=== PATIENT | male | born 1950 | race Caucasian/White ===

== ENCOUNTER → 2019-08-18 09:38 | Outpatient (CLI) | payer MEDICARE, OTHER, SELFPAY ==
[2019-08-18 10:41] LABS: BUN Creatinine Ratio 21.1 (6-22); Blood Urea Nitrogen 19 mg/dL (9-20); Calcium 9.3 mg/dL (8.4-10.2); Carbon Dioxide 29 mmol/L (22-32); Chloride 101 mmol/L (98-107); Estimated Glomerular Filt Rate > 60.0 mL/min (>60); Glucose 166 mg/dL (80-110); HEMOLYSIS < 15 (0-50); Potassium 4.4 mmol/L (3.4-5.1); Sodium 139 mmol/L (137-145)
== END ==
PROVIDERS: Family Provider Internal Medicine; PCP Internal Medicine; Visit Provider Internal Medicine
DX: I10 Essential (primary) hypertension (principal)
CPT/HCPCS: 36415; 80048

== ENCOUNTER 2019-11-12 09:46 | Day surgery (SDC) | payer MEDICARE, OTHER, SELFPAY ==
--- NOTE | 2019-11-12 08:15 | PM.HP.1 ---
History of Present Illness History of Present Illness Date Patient Seen: 11/12/19 Chief complaint: [id number] Narrative: Patient is a 69 year old male with a history of colon polyps presented for colonoscopy. Known history of colon polyps. Last colonoscopy 2013. Meds Home Medications and Allergies Home Medications Medication Instructions Recorded Confirmed Type Aspir-81 81 mg DAILY 11/12/19 11/12/19 History CoQ-10 300 mg DAILY 11/12/19 11/12/19 History Glucosamine 1,500 mg DAILY 11/12/19 11/12/19 History Vitamin D3 DAILY 11/12/19 History atorvastatin 10 mg DAILY 11/12/19 11/12/19 History glipizide 10 mg DAILY 11/12/19 11/12/19 History lisinopril 20 mg DAILY 11/12/19 11/12/19 History metformin 2,000 mg DAILY 11/12/19 11/12/19 History multivitamin DAILY 11/12/19 History saw palmetto 320 mg DAILY 11/12/19 11/12/19 History Allergies Allergy/AdvReac Type Severity Reaction Status Date / Time ibuprofen AdvReac ITCHING Verified 11/12/19 10:11 Review of Systems Review of Systems ROS: Yes All systems reviewed with the patient and are negative except as otherwise documented Exam Const General: cooperative, healthy appearing, comfortable, well developed and well groomed HENAL Head: normocephalic and atraumatic Nose: external nose normal Resp Effort & Inspection: normal respiratory effort and able to speak in complete sentences Auscultation: clear to auscultation bilaterally Cardio Rate: regular rate Rhythm: regular rhythm Heart Sounds: S1 normal and S2 normal GI Palpation: soft, No guarding and No rigid Auscultation: normal bowel sounds Extrem Right lower extremity: no edema Left lower extremity: no edema Assessment & Plan Assessment & Plan narrative: 1. Personal history of colon polyps - Colonoscopy today, further recommendations to follow
[2019-11-12 09:58] VITALS: BP 144/77; PULSE 73; RESP 20; TEMP 36.4; O2SAT 100; BMI 27.8
[2019-11-12] MEDS: SODIUM CHLORIDE 0.9% 1,000 ML 70 ML IV (10:20)
[2019-11-12] MEDS: fentaNYL 250 MCG/5 ML INJ IV (10:36)
[2019-11-12] MEDS: MIDAZOLAM 5 MG/5 ML VIAL IV (10:38)
[2019-11-12 10:57] VITALS: BP 121/80; PULSE 71; RESP 16; TEMP 36.5; O2SAT 95
--- NOTE | 2019-11-12 11:00 | PM.OP.ENDO ---
Operative Date/Time/Diagnoses Date of procedure: 11/12/19 Time of procedure: 10:35 Procedure Notes Procedure in detail: Surgeon: Archana Rivera DO Procedure: Colonoscopy Preoperative diagnosis: 1. Personal history of colon polyps, last colonoscopy 2013 Postoperative diagnosis: 1. Internal hemorrhoids, otherwise unremarkable colonoscopy to cecum Medications: Conscious sedation using 5 mg IV of Midazolam and 100 mcg IV of Fentanyl Preanesthesia Assessment An H and P was performed/updated and the Px?s ASA class is 2. The procedure was discussed in detail with the patient. The potential risks and complications including infection, bleeding, missed lesions, perforation, need for surgery in case of perforation, prolonged hospital stay, and were explained. A brief question and answer period was allotted and once all questions were answered, informed consent was obtained. The patient was brought back to the procedure room and placed on standard monitoring. The patient?s vital signs were monitored continuously throughout the entire procedure. Prior to starting, a timeout was performed to confirm the patient?s identity, allergies, medications, and procedure. Procedure in detail The patient was placed in left lateral decubitus position and once adequate sedation was obtained a EVELYN was performed. The digital rectal examination did not reveal any palpable lesions. The tip of the colonoscope was placed in the anal canal and advanced without difficulty all the way to the cecum which was identified by the appendiceal orifice and the ileocecal valve. Careful examination of all greene of the colon was performed with irrigation of any residual stool. The patient tolerated the procedure well and will be brought back to the recovery area to be discharged once criteria are met. The prep was judged to be good/excellent and adequate to identify polyps less than 5 mm. The withdrawal time was 9min. The total physician intraservice time was 17 min. Complications There were no complications and estimated blood loss was minimal. Recommendations: Resume previous diet Continue outPx medications Follow up pathology results Repeat colonoscopy in 5 years for surveillance An emergency contact number was given to the patient for any complications related to the procedure Scope withdrawal time: 9min Sedation minutes: 17
[2019-11-12 11:02] VITALS: BP 133/88; PULSE 70; RESP 16; O2SAT 96
[2019-11-12 11:04] VITALS: BP 133/91; PULSE 69; RESP 19; TEMP 36.3; O2SAT 96
[2019-11-12 11:27] VITALS: BP 111/72; PULSE 62; RESP 18; TEMP 36.7; O2SAT 98
== END 2019-11-12 11:36 | disposition home or self-care (01) ==
PROVIDERS: Family Provider Internal Medicine; PCP Internal Medicine; Referring Provider Student in an Organized Health Care Education/Training Program; Visit Provider Student in an Organized Health Care Education/Training Program
PROC: 0DJD8ZZ Inspection of Lower Intestinal Tract, Via Natural or Artificial Opening Endoscopic (ICD-10-PCS; CPT 45378; principal; 2019-11-12 11:00)
DX: Z12.11 Encounter for screening for malignant neoplasm of colon (principal); Z86.010 Personal history of colon polyps; K64.8 Other hemorrhoids
CPT/HCPCS: G0105; J2250; J3010

== ENCOUNTER → 2019-12-05 08:55 | Outpatient (CLI) | payer MEDICARE, OTHER, SELFPAY ==
[2019-12-05 11:23] LABS: White Blood Cell Count 6.4 X10^3/uL (4.5-11.0)
[2019-12-05 11:41] LABS: Alanine Aminotransferase 32 IU/L (<50); Albumin 4.7 g/dL (3.5-5.0); Albumin Globulin Ratio 1.5 (1.0-2.8); Alkaline Phosphatase 46 U/L (38-126); Aspartate Aminotransferase 29 IU/L (17-59); Bilirubin Direct 0.1 mg/dL (0.0-0.4); Bilirubin Total 0.7 mg/dL (0.2-1.3); Blood Urea Nitrogen 16 mg/dL (9-20); Calcium 9.5 mg/dL (8.4-10.2); Carbon Dioxide 27 mmol/L (22-32); Chloride 98 mmol/L (98-107); Estimated Glomerular Filt Rate > 60.0 mL/min (>60); Globulin 3.1 g/dL (1.7-4.1); Glucose 224 mg/dL (80-110); HEMOLYSIS 45 (0-50); Potassium 4.5 mmol/L (3.4-5.1); Sodium 136 mmol/L (137-145); Total Protein 7.8 g/dL (6.3-8.2)
== END ==
PROVIDERS: Family Provider Internal Medicine; PCP Internal Medicine; Referring Provider Podiatrist; Visit Provider Podiatrist
DX: B35.1 Tinea unguium (principal)
CPT/HCPCS: 36415; 80053; 82248; 85048

== ENCOUNTER → 2020-06-16 19:31 | Outpatient (ROUT) | payer MEDICARE, OTHER, SELFPAY ==
[2020-06-16 19:44] LABS: BUN Creatinine Ratio 20.6 (6-22); Blood Urea Nitrogen 21 mg/dL (9-20); Calcium 9.9 mg/dL (8.4-10.2); Carbon Dioxide 27 mmol/L (22-32); Chloride 101 mmol/L (98-107); Estimated Glomerular Filt Rate > 60.0 mL/min (>60); Glucose 146 mg/dL (80-110); HEMOLYSIS < 15 (0-50); Potassium 4.5 mmol/L (3.4-5.1); Sodium 139 mmol/L (137-145)
== END ==
PROVIDERS: Family Provider Internal Medicine; PCP Internal Medicine; Visit Provider Internal Medicine
DX: I10 Essential (primary) hypertension (principal)
CPT/HCPCS: 80048

== ENCOUNTER → 2021-08-23 10:21 | Outpatient (CLI) | payer MEDICARE, OTHER, SELFPAY ==
[2021-08-23 11:13] LABS: COVID19 -Nasal RAPID Negative (Negative)
== END ==
PROVIDERS: Family Provider Internal Medicine; PCP Internal Medicine; Referring Provider Physician Assistant; Visit Provider Physician Assistant
DX: Z20.822 Contact with and (suspected) exposure to COVID-19 (principal)
CPT/HCPCS: 87635

== ENCOUNTER → 2022-05-01 07:48 | Outpatient (CLI) | payer MEDICARE, OTHER, SELFPAY ==
[2022-05-01 08:31] LABS: Hematocrit 43.4 % (41-53); Mean Corpuscular HGB Conc 34.6 % (30-36); Mean Corpuscular Hemoglobin 30.6 PG (26-34); Mean Corpuscular Volume 88.4 fL (80-100); Platelet Count 172 X10^3/uL (150-400); Red Blood Cell Count 4.91 X10^6/uL (4.5-5.9); Red Cell Distribution Width 13.1 % (11.6-14.8)
[2022-05-01 08:41] LABS: Alanine Aminotransferase 20 IU/L (<50); Albumin 4.4 g/dL (3.5-5.0); Albumin Globulin Ratio 1.6 (1.0-2.8); Alkaline Phosphatase 47 U/L (38-126); Aspartate Aminotransferase 20 IU/L (17-59); BUN Creatinine Ratio 22.1 (6-22); Blood Urea Nitrogen 19 mg/dL (9-20); Calcium 9.2 mg/dL (8.4-10.2); Carbon Dioxide 28 mmol/L (22-32); Chloride 100 mmol/L (98-107); Cholesterol 138 mg/dL (140-199); Estimated Glomerular Filt Rate > 60 mL/min (>60); Globulin 2.7 g/dL (1.7-4.1); Glucose 159 mg/dL (80-110); HDL Cholesterol 33 mg/dL (40-60); HEMOLYSIS < 15 (0-50); LDL Cholesterol Calculated 76 mg/dL (<100); Potassium 4.7 mmol/L (3.4-5.1); Sodium 136 mmol/L (137-145); Total Protein 7.1 g/dL (6.3-8.2); Triglycerides 143 mg/dL (35-150)
[2022-05-01 09:11] LABS: Prostate Specific Antigen 1.81 ng/mL (0.10-4.00)
[2022-05-01 09:12] LABS: TSH w/ Reflex to FT4 2.38 uIU/mL (0.47-4.68)
[2022-05-01 09:35] LABS: Hemoglobin A1C% w Est Avg Glu 7.4 % (4.0-6.0)
[2022-05-01 10:08] LABS: Creatinine Urine Random 102.8 mg/dL
[2022-05-01 10:12] LABS: Microalbumi Creatinin Ratio Ur 11.6 ug/mg CR (<30); Microalbumin Urine Random 1.2 mg/dL (0-1.6)
== END ==
PROVIDERS: Family Provider Internal Medicine; PCP Internal Medicine; Referring Provider Internal Medicine; Visit Provider Internal Medicine
DX: E11.69 Type 2 diabetes mellitus with other specified complication (principal); E78.5 Hyperlipidemia, unspecified; N40.1 Benign prostatic hyperplasia with lower urinary tract symptoms; E78.2 Mixed hyperlipidemia; I10 Essential (primary) hypertension; N13.8 Other obstructive and reflux uropathy
CPT/HCPCS: 36415; 80053; 80061; 82043; 82570; 83036; 84153; 84443; 85027

== ENCOUNTER → 2022-11-29 07:55 | Outpatient (CLI) | payer MEDICARE, OTHER, SELFPAY ==
[2022-11-29 09:28] LABS: Hemoglobin A1C% w Est Avg Glu 8.4 % (4.0-6.0)
[2022-11-29 09:37] LABS: BUN Creatinine Ratio 21.3 (6-22); Blood Urea Nitrogen 17 mg/dL (9-20); Calcium 8.5 mg/dL (8.4-10.2); Carbon Dioxide 28 mmol/L (22-32); Chloride 98 mmol/L (98-107); Estimated Glomerular Filt Rate > 60 mL/min (>60); Glucose 155 mg/dL (80-110); HEMOLYSIS < 15 (0-50); Potassium 4.6 mmol/L (3.4-5.1); Sodium 137 mmol/L (137-145)
== END ==
PROVIDERS: PCP Internal Medicine; Referring Provider Internal Medicine; Visit Provider Internal Medicine
DX: E11.69 Type 2 diabetes mellitus with other specified complication (principal); E78.5 Hyperlipidemia, unspecified; I10 Essential (primary) hypertension
CPT/HCPCS: 36415; 80048; 83036

== ENCOUNTER → 2023-05-03 07:08 | Outpatient (CLI) | payer MEDICARE, OTHER, SELFPAY ==
[2023-05-03 07:52] LABS: HEMOLYSIS < 15 (0-50)
[2023-05-03 08:01] LABS: Aspartate Aminotransferase 20 IU/L (17-59); BUN Creatinine Ratio 17.6 (6-22); Blood Urea Nitrogen 16 mg/dL (9-20); Calcium 8.8 mg/dL (8.4-10.2); Carbon Dioxide 28 mmol/L (22-32); Chloride 100 mmol/L (98-107); Cholesterol 131 mg/dL (140-199); Estimated Glomerular Filt Rate > 60 mL/min (>60); Glucose 178 mg/dL (80-110); HDL Cholesterol 36 mg/dL (40-60); LDL Cholesterol Calculated 71 mg/dL (<100); Potassium 4.6 mmol/L (3.4-5.1); Sodium 134 mmol/L (137-145); Triglycerides 121 mg/dL (35-150)
[2023-05-03 08:52] LABS: Prostate Specific Antigen 1.91 ng/mL (0.10-4.00)
[2023-05-03 09:45] LABS: Appearance Urine UA CLEAR; Bilirubin Urine UA NEGATIVE (NEGATIVE); Color Urine UA YELLOW; Glucose Urine UA 3+ g/dL (Negative); Ketones Urine UA NEGATIVE (NEGATIVE); Leukocyte Esterase Urine UA NEGATIVE (NEGATIVE); Nitrite Urine UA NEGATIVE (Negative); Occult Blood Urine UA NEGATIVE (Negative); Protein Urine UA NEGATIVE (Negative); Specific Gravity Urine UA 1.015 (1.000-1.035); Urobilinogen Urine UA 0.2 E.U./dL (0.2); pH Urine UA 5.5 (4.5-8.0)
[2023-05-03 09:58] LABS: Bacteria Urine None Seen; RBC Urine None Seen (0-5/HPF); Squamous Epithelial Cell Urine 0-1 /HPF (0-5/HPF); WBC Urine None Seen (0-5/HPF)
[2023-05-03 10:14] LABS: Creatinine Urine Random 75.5 mg/dL
[2023-05-03 10:22] LABS: Microalbumin Urine Random < 0.6 mg/dL (0-1.6)
[2023-05-04 07:09] LABS: x Labcorp Estim. Avg Glu (eAG) 154 mg/dL (.)
== END ==
PROVIDERS: PCP Internal Medicine; Referring Provider Internal Medicine; Visit Provider Internal Medicine
DX: N40.1 Benign prostatic hyperplasia with lower urinary tract symptoms; E11.69 Type 2 diabetes mellitus with other specified complication; E78.2 Mixed hyperlipidemia; E78.5 Hyperlipidemia, unspecified; I10 Essential (primary) hypertension; N13.8 Other obstructive and reflux uropathy
CPT/HCPCS: 36415; 80048; 80061; 81001; 82043; 82570; 83036; 84153; 84450

== ENCOUNTER → 2023-11-01 08:24 | Outpatient (CLI) | payer MEDICARE, SELFPAY ==
--- NOTE | 2023-11-01 08:26 | DI.RAD.S_ITS ---
PROCEDURE: XR LUMBAR SPINE 2-3V INDICATIONS: back pain, no trauma TECHNIQUE: 3 views of the lumbar spine were acquired. COMPARISON: None. FINDINGS: Bones: 5 [id number] vertebrae are present. Straightening of the normal lumbar lordosis. There is multilevel facet arthropathy, worse at L4-5 and L5-S1. Mild multilevel disc height loss with degenerative endplate changes and spurring is present. No vertebral body compression fractures. No suspicious bony lesions. Soft tissues: Overlying bowel gas pattern is normal. No suspicious soft tissue calcifications. Atherosclerotic vascular calcifications. IMPRESSION: Mild degenerative changes of the lumbar spine. Dictated by: Gaurang Young M.D. on 11/01/2023 at 10:26 Approved by: Gaurang Young M.D. on 11/01/2023 at 10:27
[2023-11-01 10:37] LABS: BUN Creatinine Ratio 18.8 (6-22); Blood Urea Nitrogen 16 mg/dL (9-20); Calcium 9.6 mg/dL (8.4-10.2); Carbon Dioxide 28 mmol/L (22-32); Chloride 97 mmol/L (98-107); Estimated Glomerular Filt Rate > 60 mL/min (>60); Glucose 116 mg/dL (80-110); HEMOLYSIS < 15 (0-50); Potassium 4.1 mmol/L (3.4-5.1); Sodium 136 mmol/L (137-145)
[2023-11-01 11:54] LABS: Hemoglobin A1C% w Est Avg Glu 7.7 % (4.0-6.0)
== END ==
PROVIDERS: PCP Internal Medicine; Referring Provider Internal Medicine; Visit Provider Internal Medicine
DX: M47.817 Spondylosis without myelopathy or radiculopathy, lumbosacral region (principal); M54.31 Sciatica, right side; E11.69 Type 2 diabetes mellitus with other specified complication; M47.816 Spondylosis without myelopathy or radiculopathy, lumbar region; M54.50 Low back pain, unspecified; G89.29 Other chronic pain; E78.5 Hyperlipidemia, unspecified
CPT/HCPCS: 36415; 72100; 80048; 83036

== ENCOUNTER 2023-12-31 14:30 | Outpatient (RCR) | payer MEDICARE, SELFPAY ==
--- NOTE | 2023-12-26 17:07 | PT.OTN ---
Current Diagnoses Other chronic pain (12/26/23) Sciatica, right side (12/26/23) Low back pain, unspecified (12/26/23) Physical Therapy Treatment Note PT-OP-A Visit Information Start: 12/26/23 16:44 Freq: Status: Active Protocol: Document 12/26/23 14:30 DCW (Rec: 12/26/23 17:07 DCW [id number]) Out-Patient Physical Therapy Visit Information Visit Information Visit Type Initial Evaluation Visit Start Time 14:30 Visit Stop Time 15:10 Visit Number 1 Number of 3D ARTIST Visits 0 Evaluation Information Evaluation Date 12/26/23 PT-OP-B Current Condition Start: 12/26/23 16:44 Freq: Status: Active Protocol: Document 12/26/23 14:30 DCW (Rec: 12/26/23 17:07 DCW [id number]) Current Condition History of Current Condition Onset Date July, Current Complaints Right posterior hip pain History of Current Condition Pt is a 73 year old male presenting with a five month history of right posterior hip pain. Pt reports that in July of last year, he and his purchased a double- wide to fix up for family to stay in, and he spent a galvan of time seated on the floor or bent over fixing electric outlets and light switches. By the time he was done, he had fairly severe pain in his right posterior hip, as well as radiating pain in his right leg. Pt reports pain is worse in the evening, or after sitting/standing for too long. Pain decreases with activity, or when lying flat on a firm surface. Pt does admit that his pain has significantly declined over the last two months, and is largely feeling much better, no longer leg pain, more just a general stiffness in his hip. PT-OP-C Subjective Start: 12/26/23 16:44 Freq: Status: Active Protocol: Document 12/26/23 14:30 DCW (Rec: 12/26/23 17:07 DCW [id number]) OP-PT Subjective Patient Comments Patient Comments I think I'm already on my way healing from this. Patient Questionnaires Oswestry Low Back Index Oswestry Score 2/50 = 4% Oswestry Impairment 1 to 19% Impaired (Score 1-19) PT-OP-F Manual Assessment Start: 12/26/23 16:44 Freq: Status: Active Protocol: Document 12/26/23 14:30 DCW (Rec: 12/26/23 17:07 DCW [id number]) Manual Assessments Soft Tissue Assessment Soft Tissue Mobility Assessment Moderate tone with tenderness to palpation 11/04: Pain with wincing at R piriformis PT-OP-L Special Tests Start: 12/26/23 16:44 Freq: Status: Active Protocol: Document 12/26/23 14:30 DCW (Rec: 12/26/23 17:07 DCW [id number]) Special Tests Lumbar Spine Special Tests Vertical Spine Loading Test Results Negative Straight Leg Raise Test Results Negative Standing Flexion Test Results Negative Slump Test Results Negative Compression Test Results Negative A-P Shearing Test Results Negative Hip Special Tests Piriformis Test Results Positive R PT-OP-Q Treatments Start: 12/26/23 16:44 Freq: Status: Active Protocol: Document 12/26/23 14:30 DCW (Rec: 12/26/23 17:07 DCW [id number]) Therapeutic Exercises Supine Exercises Piriformis stretch Supine Exercise Name Knee to opposite chest, Figure -4 Side right Sitting Exercises Self-STM Sitting Exercise Name Tennis ball on Piriformis Side right Piriformis Sitting Exercise Name Seated figure-4 Side right PT-OP-T Assessment and Plan Start: 12/26/23 16:44 Freq: Status: Active Protocol: Document 12/26/23 14:30 DCW (Rec: 12/26/23 17:07 DCW [id number]) Physical Therapy Assessment Rehab Potential Rehabilitation Potential Excellent Evaluation Complexity Number of Personal Factors/Comorbidities 0 Number of Body Systems Impaired 1-2 Clinical Presentation at Evaluation Stable Impairments Impairments Functional Activities, Functional Mobility,Pain,Tone Goals Two Impairment Pt experiences pain with sitting longer than 60 minutes Septic Technician Goal (LTG) Pt to improve right posterior hip pain to decrease limitations on sitting without pain, allowing him to increase length of time he can drive without pain LTG Duration 01/26/24 One Impairment Pt does not have an appropriate home exercise program Short Term Goal (STG) Pt to be independent and compliant with an appropriate HEP STG Duration 01/11/24 Assessment Summary Assessment Pt presenting largely asymptomatic at this time, no positive lumbar testing. Only noticeable issue was right piriformis tightness creating some hip stiffness. Pt demonstrated good response to STM and stretching, agreeable to home exercise program ( unfortunately unable to provide handout due to problem with exercise program). Pt already likely very close to recovery at this time, will likely do well with only 1-2 more visits to adjust and progress HEP as needed. Physical Therapy Plan Frequency and Duration Frequency of Treatment 1x/Week Plan of Care Start Date 12/26/23 Plan of Care End Date 01/26/24 Therapeutic Interventions Therapeutic Interventions Home Exercise Program,Joint Mobilizations,Manual Therapy, Patient/Caregiver Education, Self-Care/Home Management,Soft Tissue Mobilization, Therapeutic Activities, Therapeutic Exercises
--- NOTE | 2023-12-26 17:08 | PT.OPPOC ---
Physical, Occupational & Speech Therapy At [facility] Current Diagnoses Other chronic pain (12/26/23) Sciatica, right side (12/26/23) Low back pain, unspecified (12/26/23) Visit Care Team Role Provider Type Hector Mercado MD Attending Provider Physician Family Provider Primary Care Provider Referring Provider Specialty: Internal Medicine Address: [address] [place] [address], [facility] Email: [email or web address] Plan Of Care PT-OP-T Assessment and Plan Start: 12/26/23 16:44 Freq: Status: Active Protocol: Document 12/26/23 14:30 DCW (Rec: 12/26/23 17:07 DCW [id number]) Physical Therapy Assessment Rehab Potential Rehabilitation Potential Excellent Evaluation Complexity Number of Personal Factors/Comorbidities 0 Number of Body Systems Impaired 1-2 Clinical Presentation at Evaluation Stable Impairments Impairments Functional Activities, Functional Mobility,Pain,Tone Goals Two Impairment Pt experiences pain with sitting longer than 60 minutes Care Home Goal (LTG) Pt to improve right posterior hip pain to decrease limitations on sitting without pain, allowing him to increase length of time he can drive without pain LTG Duration 01/26/24 One Impairment Pt does not have an appropriate home exercise program Short Term Goal (STG) Pt to be independent and compliant with an appropriate HEP STG Duration 01/11/24 Assessment Summary Assessment Pt presenting largely asymptomatic at this time, no positive lumbar testing. Only noticeable issue was right piriformis tightness creating some hip stiffness. Pt demonstrated good response to STM and stretching, agreeable to home exercise program ( unfortunately unable to provide handout due to problem with exercise program). Pt already likely very close to recovery at this time, will likely do well with only 1-2 more visits to adjust and progress HEP as needed. Physical Therapy Plan Frequency and Duration Frequency of Treatment 1x/Week Plan of Care Start Date 12/26/23 Plan of Care End Date 01/26/24 Therapeutic Interventions Therapeutic Interventions Home Exercise Program,Joint Mobilizations,Manual Therapy, Patient/Caregiver Education, Self-Care/Home Management,Soft Tissue Mobilization, Therapeutic Activities, Therapeutic Exercises Plan of Care Dates Plan of Care Start Date 12/26/23 Plan of Care End Date 01/26/24 Electronically Signed by: Bernard Rojas, PT 12/26/23 1708 If you are in agreement with this Plan of Care, please return a signed and dated copy. I have reviewed this Plan of Care and certify that the skilled therapy services above are required to meet the patient?s needs. Physician Signature Date Printed Name and Credentials Clinical Instructor Signature Printed Name and Credentials
--- NOTE | 2023-12-31 14:59 | PT.OTN ---
Current Diagnoses Other chronic pain (12/31/23) Sciatica, right side (12/31/23) Low back pain, unspecified (12/31/23) Physical Therapy Treatment Note PT-OP-A Visit Information Start: 12/26/23 16:44 Freq: Status: Active Protocol: Document 12/31/23 14:30 DCW (Rec: 12/31/23 14:59 DCW [id number]) Out-Patient Physical Therapy Visit Information Visit Information Visit Type Discharge Summary Visit Start Time 14:30 Visit Stop Time 14:55 Visit Number 2 Number of NEWSPAPER INSERTER Visits 0 Evaluation Information Evaluation Date 12/26/23 PT-OP-B Current Condition Start: 12/26/23 16:44 Freq: Status: Active Protocol: Document 12/26/23 14:30 DCW (Rec: 12/26/23 17:07 DCW [id number]) Current Condition History of Current Condition Onset Date July, Current Complaints Right posterior hip pain History of Current Condition Pt is a 73 year old male presenting with a five month history of right posterior hip pain. Pt reports that in July of last year, he and his purchased a double- wide to fix up for family to stay in, and he spent a lot of time seated on the floor or bent over fixing electric outlets and light switches. By the time he was done, he had fairly severe pain in his right posterior hip, as well as radiating pain in his right leg. Pt reports pain is worse in the evening, or after sitting/standing for too long. Pain decreases with activity, or when lying flat on a firm surface. Pt does admit that his pain has significantly declined over the last two months, and is largely feeling much better, no longer leg pain, more just a general stiffness in his hip. PT-OP-C Subjective Start: 12/26/23 16:44 Freq: Status: Active Protocol: Document 12/31/23 14:30 DCW (Rec: 12/31/23 14:59 DCW [id number]) OP-PT Subjective Patient Comments Patient Comments I've been doing the stretches 3x/day, or more. I didn't have any pain Sunday until right before bed. I had a slight ache Sunday all afternoon. PT-OP-F Manual Assessment Start: 12/26/23 16:44 Freq: Status: Active Protocol: Document 12/26/23 14:30 DCW (Rec: 12/26/23 17:07 DCW [id number]) Manual Assessments Soft Tissue Assessment Soft Tissue Mobility Assessment Moderate tone with tenderness to palpation 11/04: Pain with wincing at R piriformis PT-OP-L Special Tests Start: 12/26/23 16:44 Freq: Status: Active Protocol: Document 12/26/23 14:30 DCW (Rec: 12/26/23 17:07 LAW [id number]) Special Tests Lumbar Spine Special Tests Vertical Spine Loading Test Results Negative Straight Leg Raise Test Results Negative Standing Flexion Test Results Negative Slump Test Results Negative Compression Test Results Negative A-P Shearing Test Results Negative Hip Special Tests Piriformis Test Results Positive R PT-OP-Q Treatments Start: 12/26/23 16:44 Freq: Status: Active Protocol: Document 12/31/23 14:30 DCW (Rec: 12/31/23 14:59 DCW [id number]) Therapeutic Exercises Supine Exercises Piriformis stretch Supine Exercise Name Knee to opposite chest, Figure -4 Side right Sitting Exercises Piriformis Sitting Exercise Name Seated figure-4 Side right Manual Therapy Treatment Soft Tissue Mobilization Piriformis Body Location R Piriformis Mobilization Type Sustained Pressure,Trigger Point Release Intensity/Depth Moderate PT-OP-T Assessment and Plan Start: 12/26/23 16:44 Freq: Status: Active Protocol: Document 12/31/23 14:30 DCW (Rec: 12/31/23 14:59 DCW [id number]) Physical Therapy Assessment Impairments Impairments Functional Activities, Functional Mobility,Pain,Tone Goals Two Impairment Pt experiences pain with sitting longer than 60 minutes Concrete Pourer Goal (LTG) Pt to improve right posterior hip pain to decrease limitations on sitting without pain, allowing him to increase length of time he can drive without pain LTG Duration 01/26/24 One Impairment Pt does not have an appropriate home exercise program Short Term Goal (STG) Pt to be independent and compliant with an appropriate HEP STG Duration Met Assessment Summary Assessment Pt largely doing well. Spent today refining HEP with verbal cues for stretch technique and addition of hip ER/IR strengthening. Pt feels comfortable discharging to independent HEP at this time. Physical Therapy Plan Frequency and Duration Frequency of Treatment 1x/Week Plan of Care Start Date 12/26/23 Plan of Care End Date 01/26/24 Therapeutic Interventions Therapeutic Interventions Home Exercise Program,Joint Mobilizations,Manual Therapy, Patient/Caregiver Education, Self-Care/Home Management,Soft Tissue Mobilization, Therapeutic Activities, Therapeutic Exercises Discharge Physical Therapy Discharge Comments Discharge to independent HEP
== END 2024-01-02 13:48 ==
LOC: PHYS 14:30
PROVIDERS: Family Provider Internal Medicine; PCP Internal Medicine; Referring Provider Internal Medicine; Visit Provider Internal Medicine
DX: M54.31 Sciatica, right side (principal); M54.50 Low back pain, unspecified; G89.29 Other chronic pain
CPT/HCPCS: 97110; 97140; 97161

== ENCOUNTER → 2024-06-25 08:43 | Outpatient (CLI) | payer MEDICARE, SELFPAY ==
[2024-06-25 10:26] LABS: Hemoglobin A1C% w Est Avg Glu 7.5 % (4.0-6.0)
[2024-06-25 10:39] LABS: HEMOLYSIS < 15 (0-50)
[2024-06-25 10:46] LABS: Aspartate Aminotransferase 20 IU/L (17-59); BUN Creatinine Ratio 23.1 (6-22); Blood Urea Nitrogen 21 mg/dL (9-20); Calcium 9.3 mg/dL (8.4-10.2); Carbon Dioxide 27 mmol/L (22-32); Chloride 100 mmol/L (98-107); Cholesterol 126 mg/dL (140-199); Estimated Glomerular Filt Rate > 60 mL/min (>60); Glucose 208 mg/dL (80-110); HDL Cholesterol 33 mg/dL (40-60); LDL Cholesterol Calculated 74 mg/dL (<100); Potassium 4.4 mmol/L (3.4-5.1); Sodium 135 mmol/L (137-145); Triglycerides 97 mg/dL (35-150)
[2024-06-25 10:55] LABS: Creatinine Urine Random 51.22 mg/dL
[2024-06-25 10:58] LABS: Microalbumin Urine Random < 0.6 mg/dL (0-1.6)
[2024-06-25 19:24] LABS: Prostate Specific Antigen 1.66 ng/mL (0.10-4.00)
== END ==
PROVIDERS: Family Provider Internal Medicine; PCP Internal Medicine; Referring Provider Internal Medicine; Visit Provider Internal Medicine
DX: E11.69 Type 2 diabetes mellitus with other specified complication (principal); N40.1 Benign prostatic hyperplasia with lower urinary tract symptoms; N13.8 Other obstructive and reflux uropathy; E78.5 Hyperlipidemia, unspecified; E78.2 Mixed hyperlipidemia
CPT/HCPCS: 36415; 80048; 80061; 82043; 82570; 83036; 84153; 84450

== ENCOUNTER → 2024-10-15 07:57 | Outpatient (CLI) | payer MEDICARE, SELFPAY ==
[2024-10-15 09:04] LABS: Hemoglobin A1C% w Est Avg Glu 6.3 % (4.0-6.0)
[2024-10-15 09:17] LABS: BUN Creatinine Ratio 22.3 (6-22); Blood Urea Nitrogen 21 mg/dL (9-20); Calcium 9.2 mg/dL (8.4-10.2); Carbon Dioxide 29 mmol/L (22-32); Chloride 98 mmol/L (98-107); Estimated Glomerular Filt Rate > 60 mL/min (>60); Glucose 220 mg/dL (80-110); HEMOLYSIS < 15 (0-50); Potassium 4.6 mmol/L (3.4-5.1); Sodium 136 mmol/L (137-145)
== END ==
PROVIDERS: Family Provider Internal Medicine; PCP Internal Medicine; Referring Provider Internal Medicine; Visit Provider Internal Medicine
DX: E11.69 Type 2 diabetes mellitus with other specified complication (principal); E78.5 Hyperlipidemia, unspecified
CPT/HCPCS: 36415; 80048; 83036

== ENCOUNTER → 2024-12-23 13:57 | Outpatient (CLI) | payer MEDICARE, SELFPAY ==
--- NOTE | 2025-01-16 10:18 | DIAB.MNT ---
Initial Diabetes Medical Nutrition Therapy Assessment Name: Shukri Delcid Date: 12/23/24 Time: 205-3p Dx: Type II Diabetes Provider: Jess Rider presents for initial DM visit, accompanied by Yessica. 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 Makes diet changes based on CGM. Diet recall: 6-8a: 1x per week 1.5c potatoes, burger riya and gravy OR keto pancake (27g CHO), butter and sf syrup 11a-12p: salad kit OR cheeseburger and 0-1 slice bread sn: nothing OR salt free peanuts OR handful of PB pretzels OR 2 mandarin oranges 5-6p: beef chili 2c, a few crackers OR nachos with cheese and taco meat OR 0.5c pasta with veggies, shrimp, bread, aung food cake iced tea 1qt 2-3x 16oz water +/- glass of wine Anthropometrics: Ht: 6' Wt: 182# Physical Activity: Walking 3x per week for 45-60 mins Self-Monitoring Blood Glucose: Meeting TIR goals TIR: 2% very high 11% high 87% in range 0% low avmg/dl GMI: 6.7% std dev: 38mg/dl variation: 27.4% Diabetes Medications: 14mg Rybelsus 2000mg Metformin 25mg Jardiance 100mg Januvia 10u Glargine-- takes 7u Pertinent Labs: HgA1c: 7.5% 06/2024 6.3% 10/2024 Past Medical History: (Last Reviewed 10/14/24 @ 16:02 by Hector Mercado MD) Benign positional vertigo BPH w urinary obs/LUTS Chicken pox Chronic low back pain DM type 2 with diabetic dyslipidemia Essential hypertension Hearing loss History of colonic polyps Measles Mixed hyperlipidemia Mumps Obstructive sleep apnea Right sciatic nerve pain Tinea unguium Tinnitus Wears glasses Nutrition Rx: Carbohydrates: Meal: 45g Snack:15-30g Nutrition Diagnosis: - Excessive CHO intake r/t nutrition knowledge deficit aeb diet recall at dinner- new Intervention: This participant was very receptive. Provided appropriate educational handouts. Discussed the following topics: Completed intake assessment. Blood sugar goals and review of trends Plate Method, impact of macronutrients on blood sugar, meal timing, pairing macronutrients and spreading out carbohydrates for better blood glucose management Recommended servings for carbohydrates at meals and snacks Heart health nutrition Brainstormed appropriate meal/snack ideas based on food preferences Role of physical activity and following provider guidelines for safety Created SMART goals for patient self-care and success. Goals: Walk after dinner- new Reduce CHO at dinner Add 3p snack with protein Follow-up: LAMIN ESPINOZA follow-up in 4-6 weeks Aixa Turner RDN, OLGA Certified Diabetes Care and Validation Scientist P: [phone] Thank you for this referral
== END ==
PROVIDERS: Family Provider Internal Medicine; PCP Internal Medicine; Referring Provider Internal Medicine
DX: E11.69 Type 2 diabetes mellitus with other specified complication (principal); Z79.84 Long term (current) use of oral hypoglycemic drugs; Z79.4 Long term (current) use of insulin; E78.5 Hyperlipidemia, unspecified
CPT/HCPCS: 97802

== ENCOUNTER → 2025-02-03 12:50 | Outpatient (CLI) | payer MEDICARE, SELFPAY ==
--- NOTE | 2025-02-03 13:01 | DIAB.MNTFU ---
Follow-up Diabetes Medical Nutrition Therapy Assessment Name: Shukri Delcid Date: 02/03/25 Time: 1-130p Dx: Type II Diabetes Provider: Jess Rider presents for initial DM visit, accompanied by Yessica. Reduced basal insulin to 5u. Including 3p snack, but states he has not reduced evening dinner portions. States often eating out at dinner, does not take any home. A few times evening walk. More consistent with a daily walk, but usually in the morning or afternoon. Endorses a strong desire to d/c basal insulin. Does seem the lantus does help with BG. Especially since he has self reduced HS insulin to 5u and TIR indicates slightly more hyperglycemia. Does not seem particularly open to reducing carb portions. States if he can keep hgA1c <7% he would rather eat as he currently is now. RD does have some concern for limited opening to reduce carbs, but also wanting to d/c insulin without excessive hyperglycemia; however he is only taking 5u at this time. He has considered a trial of d/c HS insulin. Advised him that if he self decides to d/c Hs insulin and FBG >140mg/dl should consider restarting. Reports higher CHO intake at breakfast with oats, berries, banana, juice in oats and nuts. Often having elevations after meals. Worries about wt gain with insulin. Sees PCP in early March. Anthropometrics: Ht: 6' Wt: 175# reported 01/2025 Physical Activity: Walking 3x per week for 45-60 mins Self-Monitoring Blood Glucose: Meeting TIR goals, though some decrease in in-range time. Predicted some false lows. FBG running 120-140mg/dl at this time. If he chooses to d/c HS insulin, advised him to restart if FBG >140mg/dl. TIR: 1% very high 19% high 80% in range 0% low <1% very low avmg/dl GMI: 6.8% std dev: 38mg/dl variation: 25.8% Last TIR: 2% very high 11% high 87% in range 0% low avmg/dl GMI: 6.7% std dev: 38mg/dl variation: 27.4% Diabetes Medications: 14mg Rybelsus 2000mg Metformin 25mg Jardiance 100mg Januvia 10u Glargine-- takes 7u--- now takes 5u Pertinent Labs: HgA1c: 7.5% 06/2024 6.3% 10/2024 Past Medical History: (Last Reviewed 10/14/24 @ 16:02 by Hector Mercado MD) Benign positional vertigo BPH w urinary obs/LUTS Chicken pox Chronic low back pain DM type 2 with diabetic dyslipidemia Essential hypertension Hearing loss History of colonic polyps Measles Mixed hyperlipidemia Mumps Obstructive sleep apnea Right sciatic nerve pain Tinea unguium Tinnitus Wears glasses Nutrition Rx: Carbohydrates: Meal: 45g Snack:15-30g Nutrition Diagnosis: - Excessive CHO intake r/t stage of change contemplative aeb pt report of minimally wanting to change diet- new Intervention: This participant was very receptive. Provided appropriate educational handouts. Discussed the following topics: carb portions BG goals and current trends and TIR goals Diabetes medications and impact on BG Physical activity and impact on BG Easy strategies for reducing portions at dinner that he is open to Relationship of mitigated wt gain and insulin if carb portions are moderate to low Hyperglycemia and wt loss Discussed weighing BG goals, quality of life, and Dm medications Created SMART goals for patient self-care and success. Goals: Walk after dinner- in progress Reduce CHO at dinner- not met Add 3p snack with protein- mte Try to be more consistent about evening walk- new If you decide to d/c Hs insulin (not rec by provider or RD at this time) and FBG >140, please restart - new Take half portion home when eating out- new Follow-up: LAMIN ESPINOZA follow-up in 3-4 weeks Aixa Turner RDN, OLGA Certified Diabetes Care and Senior Art Director P: [phone] Thank you for this referral
== END ==
LOC: DIET 12:52
PROVIDERS: Family Provider Internal Medicine; PCP Internal Medicine
DX: E11.65 Type 2 diabetes mellitus with hyperglycemia (principal); Z71.3 Dietary counseling and surveillance; Z79.4 Long term (current) use of insulin; Z79.84 Long term (current) use of oral hypoglycemic drugs
CPT/HCPCS: 97803

== ENCOUNTER → 2025-02-27 12:41 | Outpatient (CLI) | payer MEDICARE, SELFPAY ==
--- NOTE | 2025-03-05 11:09 | DIAB.MNTFU ---
Follow-up Diabetes Medical Nutrition Therapy Assessment Name: Shukri Delcid Date: 02/27/25 Time: 1-115p Dx: Type II Diabetes Provider: Jess Rider presents for DM visit. Reports taking 5-10u basal insulin depending on BG. States he is currently happy with BG and lifestyle changes. Has not implemented changes from last visit, but feels he is happy with current status. Has had elevated BG after breakfast recently r/t 2 biscuits with gravy the last 2 mornings. Continues eating out, but not currently taking half portions home. Last visit he reported a strong desire to d/c basal insulin, however does not seem to feel the same way today. Also reports he is not particularly interested in reduced CHO portions or futher lifestyle changes. Sees PCP in early March. Anthropometrics: Ht: 6' Wt: 175# reported 01/2025 Physical Activity: Started walking in evenings more frequently 1-2x per week. Self-Monitoring Blood Glucose: Meeting TIR goals. TIR: 2% very high 16% high 82% in range 0% low <1% very low avmg/dl GMI: 6.7% std dev: 40mg/dl variation: 27.9% Last TIR: 1% very high 19% high 80% in range 0% low <1% very low avmg/dl GMI: 6.8% std dev: 38mg/dl variation: 25.8% Diabetes Medications: 14mg Rybelsus 2000mg Metformin 25mg Jardiance 100mg Januvia 10u Glargine-- takes 7u--- now takes 5-10u Pertinent Labs: HgA1c: 7.5% 06/2024 6.3% 10/2024 Past Medical History: (Last Reviewed 10/14/24 @ 16:02 by Hector Mercado MD) Benign positional vertigo BPH w urinary obs/LUTS Chicken pox Chronic low back pain DM type 2 with diabetic dyslipidemia Essential hypertension Hearing loss History of colonic polyps Measles Mixed hyperlipidemia Mumps Obstructive sleep apnea Right sciatic nerve pain Tinea unguium Tinnitus Wears glasses Nutrition Rx: Carbohydrates: Meal: 45gSnack:15-30g Nutrition Diagnosis: - Excessive CHO intake r/t stage of change precontemplative aeb pt report of minimally wanting to change diet- continued Intervention: This participant was very receptive. Provided appropriate educational handouts. Discussed the following topics: Pt personal goals for DM and diet and medications Choice to continue current DM med regimen or make changes to reduce Dm meds Physical activity CHO portions Created SMART goals for patient self-care and success. Goals: Walk after dinner- improved Try to be more consistent about evening walk- improved If you decide to d/c Hs insulin (not rec by provider or RD at this time) and FBG >140, please restart - d/c Take half portion home when eating out- not met Continue walks- continue Consider reduced CHO at breakfast- new Follow-up: LAMIN ESPINOZA follow-up prn per pt request. Aixa Turner, LAMIN, OLGA Certified [facility] and Ware[employer] Receiving Clerk P: [phone] Thank you for this referral
== END ==
PROVIDERS: Family Provider Internal Medicine; PCP Internal Medicine; Referring Provider Internal Medicine
DX: E11.9 Type 2 diabetes mellitus without complications (principal); Z79.4 Long term (current) use of insulin; Z71.3 Dietary counseling and surveillance; Z79.84 Long term (current) use of oral hypoglycemic drugs
CPT/HCPCS: G0108

== ENCOUNTER → 2025-03-12 07:51 | Outpatient (CLI) | payer MEDICARE, SELFPAY ==
[2025-03-12 09:13] LABS: Hemoglobin A1C% w Est Avg Glu 6.2 % (4.0-6.0)
[2025-03-12 09:40] LABS: BUN Creatinine Ratio 18.1 (6-22); Blood Urea Nitrogen 15 mg/dL (9-20); Carbon Dioxide 26 mmol/L (22-32); Chloride 101 mmol/L (98-107); Estimated Glomerular Filt Rate > 60 mL/min (>60); Glucose 114 mg/dL (70-99); HEMOLYSIS < 15 (0-50); Potassium 4.6 mmol/L (3.4-5.1); Sodium 137 mmol/L (137-145)
== END ==
PROVIDERS: PCP Internal Medicine; Referring Provider Internal Medicine; Visit Provider Internal Medicine
DX: E11.69 Type 2 diabetes mellitus with other specified complication (principal); E78.5 Hyperlipidemia, unspecified
CPT/HCPCS: 36415; 80048; 83036

== ENCOUNTER 2025-05-25 08:25 | Day surgery (SDC) | payer MEDICARE, SELFPAY ==
[2025-05-25 08:57] VITALS: BP 149/79; PULSE 66; RESP 15; TEMP 36.4; O2SAT 99
--- NOTE | 2025-05-25 08:59 | PM.HP.IH.1 ---
History of Present Illness History of Present Illness Date Patient Seen: 05/25/25 Chief complaint: SDC Narrative: History of colon polyps [facility] Medical History Benign positional vertigo BPH w urinary obs/LUTS Chicken pox Chronic low back pain DM type 2 with diabetic dyslipidemia Essential hypertension Hearing loss History of colonic polyps Measles Mixed hyperlipidemia Mumps Obstructive sleep apnea Right sciatic nerve pain Tinea unguium Tinnitus Wears glasses Surgical History Anesthesia History of appendectomy [place] teeth removed Family History Father Kidney disease Mother Cerebral hemorrhage Brother History of heart disease Brother Hypertension Grandfather Hypertension Grandmother Diabetes mellitus Grandmother History of heart disease Social History details: (Demond), grown children, 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 household members: spouse alcohol intake: current Meds Home Medications and Allergies Home Medications ?Medication ?Instructions ?Recorded ?Confirmed ?Type aspirin 81 mg tablet,delayed 81 mg PO DAILY 04/28/22 05/25/25 History release cholecalciferol (vitamin D3) 25 25 mcg PO DAILY 04/28/22 03/11/25 History mcg (1,000 unit) capsule coenzyme Q10 100 mg capsule (Co 100 mg PO DAILY 04/28/22 03/11/25 History Q-10) glucosamine HCl 1,500 mg tablet 1,500 mg PO DAILY 04/28/22 03/11/25 History multivitamin 1 tab PO DAILY 04/28/22 03/11/25 History saw palmetto 320 mg PO DAILY 04/28/22 03/11/25 History blood-glucose,insurance claims examiner,cont #1 ea 07/11/24 10/14/24 Rx (Dexcom G7 [employer]) atorvastatin 10 mg tablet 10 mg PO DAILY #90 tabs 09/22/24 03/11/25 Rx empagliflozin 25 mg tablet 25 mg PO DAILY #90 tabs 09/22/24 05/25/25 Rx (Jardiance) sitagliptin phosphate 100 mg 100 mg PO DAILY #90 tabs 09/22/24 05/25/25 Rx tablet (Januvia) tamsulosin 0.4 mg capsule (Flomax) 0.8 mg (2 x 0.4 mg) PO DAILY #180 09/22/24 03/11/25 Rx caps lisinopril 20 mg tablet 20 mg PO DAILY #90 tabs 12/05/24 05/25/25 Rx semaglutide 14 mg tablet (Rybelsus) 14 mg PO DAILY #90 tabs 12/05/24 05/25/25 Rx blood-glucose sensor (Dexcom G7 #4 ea 01/29/25 Rx Sensor device) insulin glargine 100 unit/mL (3 10 unit (0.1 mL) SUBCUT QPM #15 mL 02/26/25 05/25/25 Rx mL) subcutaneous pen (Lantus Solostar U-100 Insulin) metformin 500 mg tablet,extended 2,000 mg (4 x 500 mg) PO DAILY 02/26/25 05/25/25 Rx release 24 hr #360 tabs Allergies Allergy/AdvReac Type Severity Reaction Status Date / Time ibuprofen AdvReac ITCHING Verified 05/25/25 08:52 Exam Vital Signs (past 8 hours): - 05/25/25 08:57 Temperature 97.6 F Pulse Rate 66 Respiratory Rate 15 Blood Pressure 149/79 H Pulse Oximetry 99 Oxygen Delivery Method Room Air Oxygen Delivery Method Room Air Narrative Exam Narrative: Oropharynx free of lesions Assessment & Plan Assessment & Plan narrative: History of colon polyps need for follow-up colonoscopy. Risks, benefits, alternatives have been explained. Time-Based Coding :: [TOTAL MINUTES] spent with patient and on the chart (including review of chart, obtaining history, exam, reviewing outside data, placing orders, documenting exam and treatment plan, and counseling patient) on [DATE]. PROFEE Cloth Checker Document charge(s): No
--- NOTE | 2025-05-25 08:59 | PM.OP.COLON ---
Operative Date/Time/Diagnoses Date of procedure: 05/25/25 Time of procedure: 10:34 Pre-op diagnosis: See indication and findings Post-op diagnosis: same Procedure & Clinicians Study performed: Colonoscopy Same procedure(s) as scheduled: Yes Indications: History of colon polyps Surgeon: Diana Morfin Anesthesia Type: Other Procedure Notes Procedure in detail: After informed consent was obtained the patient was placed in left lateral decubitus position. The video colonoscope was introduced the rectum slowly advanced cecum. Preparation was good. On slow withdrawal mucosa was carefully examined. The scope was removed. The patient tolerated procedure well. Blood loss none Complications none Sedation mac Findings 1. Normal colonoscopy to cecum Patient should have follow-up colonoscopy in 5 years
[2025-05-25] MEDS: LACTATED RINGERS 1,000 ML 42 ML IV (10:00)
[2025-05-25 10:35] VITALS: BP 104/56; PULSE 65; RESP 14; TEMP 36.2; O2SAT 97
[2025-05-25 10:40] VITALS: BP 109/63; PULSE 75; RESP 20; O2SAT 95
[2025-05-25 10:45] VITALS: BP 110/61; PULSE 78; RESP 18; O2SAT 98
[2025-05-25 10:55] VITALS: BP 114/65; PULSE 68; RESP 18; TEMP 37.1; O2SAT 97
== END 2025-05-25 11:09 | disposition home or self-care (01) ==
PROVIDERS: PCP Internal Medicine; Referring Provider Internal Medicine Gastroenterology; Visit Provider Internal Medicine Gastroenterology
PROC: 0DJD8ZZ Inspection of Lower Intestinal Tract, Via Natural or Artificial Opening Endoscopic (ICD-10-PCS; CPT 45378; principal; 2025-05-25 09:30)
DX: Z12.11 Encounter for screening for malignant neoplasm of colon (principal); Z86.0100 Personal history of colon polyps, unspecified
CPT/HCPCS: G0105; 82962; J2704

== ENCOUNTER → 2025-06-24 06:58 | Outpatient (CLI) | payer MEDICARE, SELFPAY ==
[2025-06-24 07:40] LABS: Hematocrit 41.9 % (41-53); Hemoglobin 14.3 g/dL (13.5-17.5); Mean Corpuscular HGB Conc 34.2 % (30-36); Mean Corpuscular Hemoglobin 30.5 PG (26-34); Mean Corpuscular Volume 89.1 fL (80-100); Platelet Count 174 X10^3/uL (150-400)
[2025-06-24 07:52] LABS: Hemoglobin A1C% w Est Avg Glu 6.6 % (4.0-6.0)
[2025-06-24 07:53] LABS: Blood Urea Nitrogen 22 mg/dL (9-20); Calcium 9.1 mg/dL (8.4-10.2); Carbon Dioxide 27 mmol/L (22-32); Chloride 102 mmol/L (98-107); Cholesterol 122 mg/dL (140-199); Estimated Glomerular Filt Rate > 60 mL/min (>60); Glucose 126 mg/dL (70-99); HDL Cholesterol 40 mg/dL (40-60); HEMOLYSIS < 15 (0-50); Potassium 4.3 mmol/L (3.4-5.1); Sodium 138 mmol/L (137-145); Triglycerides 83 mg/dL (35-150)
[2025-06-24 08:25] LABS: Prostate Specific Antigen 1.83 ng/mL (0.10-4.00); TSH w/ Reflex to FT4 2.74 uIU/mL (0.47-4.68)
[2025-06-24 08:43] LABS: Vitamin B12 Reflex MMA if <400 523 pg/mL (239-931)
== END ==
PROVIDERS: PCP Internal Medicine; Referring Provider Internal Medicine; Visit Provider Internal Medicine
DX: N13.8 Other obstructive and reflux uropathy (principal); E11.69 Type 2 diabetes mellitus with other specified complication; N40.1 Benign prostatic hyperplasia with lower urinary tract symptoms
CPT/HCPCS: 36415; 80048; 80061; 82043; 82570; 82607; 83036; 84153; 84443; 84450; 85027

== ENCOUNTER → 2025-07-22 09:38 | Outpatient (CLI) | payer MEDICARE, SELFPAY ==
--- NOTE | 2025-07-22 09:39 | DI.CT.S_ITS ---
PROCEDURE: CT HEAD/BRAIN WO CON INDICATIONS: memory loss, dizziness TECHNIQUE: Noncontrast 4.5 mm thick angled axial sections acquired from the foramen magnum to the vertex, with coronal and sagittal reformats. For radiation dose reduction, the following was used: automated exposure control, adjustment of mA and/or kV according to patient size. COMPARISON: None. FINDINGS: Image quality: Diagnostic. CSF spaces: Basal cisterns are patent. No extra-axial fluid collections. Ventricles are normal in size and shape. Brain: No midline shift. No intracranial mass effect or hemorrhage. Cool- white matter interface is normal. Intracranial atherosclerotic calcifications are present. Skull and face: Calvarium and visualized facial bones are intact, without suspicious lesions. Sinuses: Visualized sinuses and mastoids are clear. IMPRESSION: No acute intracranial pathology. Normal appearance of the brain for age. If further evaluation is warranted, MRI can be obtained. Dictated by: Gaurang Young M.D. on 07/22/2025 at 10:06 Approved by: Gaurang Young M.D. on 07/22/2025 at 10:08
== END ==
LOC: CT 09:38
PROVIDERS: PCP Internal Medicine; Referring Provider Internal Medicine; Visit Provider Internal Medicine
DX: I67.9 Cerebrovascular disease, unspecified (principal); R42 Dizziness and giddiness; I67.2 Cerebral atherosclerosis
CPT/HCPCS: 70450